=== PATIENT | male | born 2000 | race Caucasian/White ===

== ENCOUNTER 2021-06-16 13:06 | Emergency (ER) | payer OTHER ==
[~2021-06-16] VITALS: Ht 167.6 cm; Wt 63.0 kg
[2021-06-16 13:08] VITALS: BP 137/74
--- NOTE | 2021-06-16 13:13 | NUR ---
PT AMBULATED TO ER BED 9
[2021-06-16] MEDS ORDERED: METOCLOPRAMIDE 10 MG/2 ML INJ VIAL IVP ONE (13:15)
[2021-06-16] MEDS ORDERED: FAMOTIDINE 20 MG/2 ML VIAL IVP ONE (13:15)
[2021-06-16] MEDS ORDERED: NACL 0.9% 1,000 ML IV ONE (13:15)
--- NOTE | 2021-06-16 13:35 | NUR ---
20/M BIB SELF WITH C/O ADBOMINAL PAIN, N/V/D SINCE YESTERDAY, REPORTS TAKING PEPTO WITH NO RELIEF. DENIES ALCOHOL USE, STATES HE SMOKE MARIJUANA YESTERDAY. MEDHX: DENIES ALLERGIES: JANET
[2021-06-16 14:05] LABS: HEMOGLOBIN 16.2 g/dL (12.0-18.0)
[2021-06-16 14:15] LABS: HEMATOCRIT 47.2 % (36-52); MEAN CORPUSCULAR HEMOGLOBIN 30 pg (27-31); MEAN CORPUSCULAR HGB CONC 34 g/dL (33-37); MEAN CORPUSCULAR VOLUME 87.2 fL (80-94); PLATELET COUNT (AUTO) 240 K/uL (140-450); RED BLOOD CELL COUNT(AUTO) 5.41 MIL/uL (4.20-6.10); RED CELL DISTRIBUTION WIDTH 13.8 % (11.6-13.7)
[2021-06-16 14:21] LABS: ALBUMIN 4.6 g/dL (3.4-5.0); ANION GAP 15.6 (8-16); CARBON DIOXIDE 26.7 mmol/L (21-32); CREATININE 0.8 mg/dL (0.6-1.3); POTASSIUM 3.3 mmol/L (3.5-5.1); TOTAL BILIRUBIN 0.9 mg/dL (0.0-1.0)
[2021-06-16 14:31] LABS: EOSINOPHILS % (MANUAL) 1 % (0-4); LYMPHOCYTES % (MANUAL) 3 % (20-46); MONOCYTES % (MANUAL) 4 % (5-12)
--- NOTE | 2021-06-16 15:00 | NUR ---
WATER PROVIDED. PT TOLERATED PO CHALLENGE.
[2021-06-16 15:30] VITALS: BP 137/74
--- NOTE | 2021-06-16 15:30 | NUR ---
Patient discharged with v/s stable. Written and verbal after care instructions given and explained. Patient alert, oriented and verbalized understanding of instructions. Ambulatory with steady gait. All questions addressed prior to discharge. ID band removed. Patient advised to follow up with PMD. Opportunity to ask questions provided and answered.
== END 2021-06-16 15:30 | disposition home or self-care (01) ==
LOC: MED 13:06
DX: A05.9 Bacterial foodborne intoxication, unspecified (principal); R11.2 Nausea with vomiting, unspecified; R19.7 Diarrhea, unspecified; F17.210 Nicotine dependence, cigarettes, uncomplicated; F12.90 Cannabis use, unspecified, uncomplicated; Z71.6 Tobacco abuse counseling
CPT/HCPCS: 36415; 80053; 83690; 85025; 93005; 96361; 96374; 96375; 99284; J2765; J3490; J7030

== ENCOUNTER 2024-01-04 13:29 | Emergency (ER) | payer MEDICAID, OTHER ==
[~2024-01-04] VITALS: Ht 167.6 cm; Wt 63.5 kg
[2024-01-04 13:39] VITALS: BP 121/79; PULSE 61; RESP 17; TEMP 97.8; O2SAT 100
[2024-01-04 14:05] VITALS: BP 124/74; PULSE 64; RESP 17; TEMP 97.8; O2SAT 100
[2024-01-04] MEDS ORDERED: FAMOTIDINE 20 MG TAB ONE (14:27)
[2024-01-04] MEDS: FAMOTIDINE 20 MG TAB PO ONE (14:29)
[2024-01-04] MEDS: ONDANSETRON 4 MG ODT PO ONE (14:30)
[2024-01-04 14:59] LABS: HEMATOCRIT 48.8 % (36-52); HEMOGLOBIN 16.5 g/dL (12.0-18.0); MEAN CORPUSCULAR HEMOGLOBIN 30 pg (27-31); MEAN CORPUSCULAR HGB CONC 34 g/dL (33-37); MEAN CORPUSCULAR VOLUME 87.9 fL (80-94); PLATELET COUNT (AUTO) 223 K/uL (140-450); RED BLOOD CELL COUNT(AUTO) 5.55 MIL/uL (4.20-6.10); RED CELL DISTRIBUTION WIDTH 12.9 % (11.6-13.7); WHITE BLOOD COUNT (AUTO) 14.6 K/uL (4.8-10.8)
[2024-01-04 15:21] LABS: CALCIUM 8.9 mg/dL (8.5-10.1); CARBON DIOXIDE 30.5 mmol/L (21-32); CREATININE 0.9 mg/dL (0.6-1.3); POTASSIUM 3.5 mmol/L (3.5-5.1)
[2024-01-04 15:23] LABS: LYMPHOCYTES % (MANUAL) 7 % (20-46); MONOCYTES % (MANUAL) 1 % (5-12); PLATELET ESTIMATE ADEQUATE
[2024-01-04 15:24] LABS: ALBUMIN 4.8 g/dL (3.4-5.0); BILIRUBIN,DIRECT 0.2 mg/dL (0.0-0.3); TOTAL BILIRUBIN 0.9 mg/dL (0.0-1.0); TOTAL PROTEIN, SERUM 8.2 g/dL (6.4-8.2)
[2024-01-04] MEDS ORDERED: ONDA-188 PO (15:46)
[2024-01-04] MEDS ORDERED: FAMO-92 PO (15:46)
== END 2024-01-04 15:53 | disposition home or self-care (01) ==
LOC: MED 13:29
DX: K29.70 Gastritis, unspecified, without bleeding (principal); F12.90 Cannabis use, unspecified, uncomplicated; Z79.899 Other long term (current) drug therapy
CPT/HCPCS: 36415; 80048; 80076; 83690; 85025; 99283; Q0162